=== PATIENT | female | born 1980 | race Caucasian/White ===

== ENCOUNTER 2019-10-24 07:36 | Inpatient (IN) | payer BC ==
[~2019-10-24] VITALS: Ht 154.9 cm; Wt 63.0 kg
[~2019-10-24 07:36] MED LIST: Birth Control PO; HYDR-3237 PO; SENN1TAB67 PO
[2019-10-24] MEDS ORDERED: LACTATED RINGERS 1,000 ML IV SCH (07:57)
[2019-10-24] MEDS ORDERED: MIDAZOLAM 1 MG/ML, 2ML ONE (08:36)
[2019-10-24] MEDS ORDERED: FENTANYL PF 250 MCG/5ML ONE ×2 (08:36→10:24)
[2019-10-24] MEDS ORDERED: PROPOFOL 10 MG/ML, 20ML ONE ×6 (08:36→08:45)
[2019-10-24] MEDS ORDERED: CEFAZOLIN 1,000 MG ONE ×2 (08:36)
[2019-10-24] MEDS ORDERED: DEXAMETHASONE 4 MG/ML, 1ML ONE ×2 (08:37)
[2019-10-24] MEDS ORDERED: EPHEDRINE 50 MG/ML, 1ML ONE (08:37)
[2019-10-24] MEDS ORDERED: GLYCOPYRROLATE 0.2MG/1ML, 5ML ONE (08:45)
[2019-10-24 08:59] VITALS: BP 113/76
[2019-10-24] MEDS ORDERED: SCOPOLAMINE PATCH, 1.5MG PATCH.TD72 TD ONE (09:00)
[2019-10-24] MEDS ORDERED: OxyconTIN ER 10 MG TAB.ER PO ONE (09:00)
[2019-10-24] MEDS ORDERED: GABAPENTIN 300 MG CAPSULE PO ONE (09:00)
[2019-10-24] MEDS ORDERED: FAMOTIDINE 20 MG TABLET PO ONE (09:00)
[2019-10-24] MEDS ORDERED: ACETAMINOPHEN 500 MG TABLET PO ONE (09:00)
[2019-10-24] MEDS ORDERED: VANCOMYCIN 1,000 MG ONE (09:16)
[2019-10-24] MEDS ORDERED: LIDOCAINE 1%-EPI 1:100K, 20ML ONE (09:16)
[2019-10-24] MEDS ORDERED: THROMBIN 5,000 UNIT VIAL TP ONE (09:16)
[2019-10-24] MEDS ORDERED: TOBRAMYCIN SULFATE 1.2 GM IMP ONE (09:17)
[2019-10-24] MEDS ORDERED: BACITRACIN 50,000 UNIT ONE (09:17)
[2019-10-24 09:29] LABS: HCG UR SG 1.025 (1.003-1.030)
[2019-10-24] MEDS ORDERED: HEPARIN 1,000 UNITS/ML, 30ML ONE (10:24)
[2019-10-24] MEDS ORDERED: SUCCINYLCHOLINE 20 MG/ML, 10ML ONE (10:25)
[2019-10-24] MEDS ORDERED: ROCURONIUM 10MG/ML,5ML ONE (10:25)
[2019-10-24] MEDS ORDERED: ONDANSETRON 2MG/ML, 2ML ONE (11:03)
[2019-10-24] MEDS ORDERED: NEOSTIGMINE 1 MG/ML, 10ML ONE (11:05)
[2019-10-24] MEDS ORDERED: PROMETHAZINE 25 MG/ML, 1ML IV PRN (11:30)
[2019-10-24] MEDS ORDERED: OXYcodone 5 MG/5 ML ORAL.SOL UDC PO PRN (11:30)
[2019-10-24] MEDS ORDERED: HYDROmorphone 2 MG/ML, 1ML IVPush PRN (11:30)
[2019-10-24] MEDS ORDERED: OXYcodone 5 MG/5 ML ORAL.SOL UDC ONE (11:40)
[2019-10-24] MEDS ORDERED: FENTANYL PF 100 MCG/2ML ONE (11:40)
[2019-10-24] MEDS: FENTANYL PF 100 MCG/2ML IV PRN ×3 (11:43→12:10)
[2019-10-24] MEDS ORDERED: METHOCARBAMOL 1000MG/10 ML IV ONE (12:00)
[2019-10-24] MEDS ORDERED: METHOCARBAMOL 1,000 MG in DEXTROSE 5% 100 ML IV ONE (12:00)
[2019-10-24 12:47] VITALS: BP 136/94
[2019-10-24] MEDS ORDERED: ONDANSETRON 2MG/ML, 2ML IV PRN (13:00)
[2019-10-24] MEDS ORDERED: CEFAZOLIN PMX 1GM/50ML 50 ML IVPB SCH (13:00)
[2019-10-24] MEDS ORDERED: DIPHENHYDRAMINE 50 MG/ML, 1ML IM PRN (13:00)
[2019-10-24] MEDS ORDERED: MAGNESIUM HYDROXIDE 8%, 30ML UDC PO PRN (13:00)
[2019-10-24] MEDS ORDERED: DIPHENHYDRAMINE 50 MG/ML, 1ML IVPush PRN (13:00)
[2019-10-24] MEDS ORDERED: BISACODYL 10 MG SUPP PR PRN (13:00)
[2019-10-24] MEDS ORDERED: D5%-0.9% NACL+KCL 20MEQ 1,000 ML IV SCH (13:00)
[2019-10-24] MEDS ORDERED: PROMETHAZINE 25 MG/ML, 1ML IM PRN (13:00)
[2019-10-24] MEDS ORDERED: [UNRECOGNIZED DRUG - REMARK] MC SCH (13:30)
[2019-10-24] MEDS ORDERED: morphine SULFATE 10 MG/ML, 1ML IV PRN (13:30)
[2019-10-24] MEDS: METOCLOPRAMIDE 5 MG/ML, 2ML IV SCH ×2 (13:40→19:20)
[2019-10-24] MEDS ORDERED: DIPHENHYDRAMINE 25 MG CAPSULE PO PRN (14:00)
[2019-10-24] MEDS: HYDROcodone/APAP 10/325 MG TABLET PO PRN ×2 (16:00→20:57)
[2019-10-24] MEDS: CEFAZOLIN PMX 1GM/50ML 50 ML IVPB SCH ×2 (16:58→23:54)
[2019-10-24] MEDS: D5%-0.9% NACL+KCL 20MEQ 1,000 ML IV SCH (18:19)
[2019-10-24] MEDS ORDERED: METHOCARBAMOL 750 MG TABLET PO PRN (20:00)
[2019-10-24] MEDS: SENNA/DOCUSATE TABLET PO SCH (20:56)
[2019-10-24 21:17] VITALS: BP 96/60
[2019-10-25 00:08] VITALS: BP 98/60
[2019-10-25] MEDS: METOCLOPRAMIDE 5 MG/ML, 2ML IV SCH ×4 (01:20→18:08)
[2019-10-25] MEDS: D5%-0.9% NACL+KCL 20MEQ 1,000 ML IV SCH ×3 (02:23→23:00)
[2019-10-25] MEDS: HYDROcodone/APAP 10/325 MG TABLET PO PRN ×5 (02:34→20:14)
[2019-10-25 04:17] VITALS: BP 96/59
[2019-10-25 05:10] LABS: BASOPHILS # (AUTO) 0.02 x10^3/uL (0-0.1); BASOPHILS % (AUTO) 0 % (0-1); EOSINOPHILS # (AUTO) 0.06 x10^3/uL (0-0.4); EOSINOPHILS % (AUTO) 1 % (1-7); LYMPHOCYTES # (AUTO) 1.44 x10^3/uL (1-3.4); LYMPHOCYTES % (AUTO) 13 % (22-44); MD NO; MEAN CORPUSCULAR HEMOGLOBIN 29.8 pg (27.0-34.8); MEAN CORPUSCULAR HGB CONC 33.9 g/dL (32.4-35.8); MEAN CORPUSCULAR VOLUME 87.9 fL (80-100); MEAN PLATELET VOLUME 11.9 fL (7.4-10.4); MONOCYTES # (AUTO) 0.94 x10^3/uL (0.2-0.8); MONOCYTES % (AUTO) 8 % (2-9); NEUTROPHILS # (AUTO) 9.06 x10^3/uL (1.8-6.8); NEUTROPHILS % (AUTO) 79 % (42-75); PLATELET COUNT 176 x10^3/uL (130-400); RED BLOOD COUNT 4.09 x10^6/uL (3.82-5.3); RED CELL DISTRIBUTION WIDTH 12.6 % (9.6-15.2)
[2019-10-25 05:18] LABS: ANION GAP 6 mmol/L (5-15); CALCIUM 7.8 mg/dL (8.5-10.1); CHLORIDE 107 mmol/L (98-107); CREATININE 0.72 mg/dL (0.55-1.02)
[2019-10-25 07:50] VITALS: BP 112/73
[2019-10-25] MEDS: SENNA/DOCUSATE TABLET PO SCH ×3 (09:00→20:11)
[2019-10-25] MEDS: BIRTH CONTROL HOMEMEDPO SCH (09:00)
[2019-10-25 12:53] VITALS: BP 116/78
[2019-10-25] MEDS ORDERED: D5%-0.9% NACL+KCL 20MEQ 1,000 ML IV SCH (13:00)
[2019-10-25] MEDS: ENOXAPARIN 30 MG/0.3 ML SQ SCH (20:11)
[2019-10-25 20:21] VITALS: BP 111/75
[2019-10-26] MEDS: HYDROcodone/APAP 10/325 MG TABLET PO PRN (01:06)
[2019-10-26] MEDS: METOCLOPRAMIDE 5 MG/ML, 2ML IV SCH ×3 (01:10→13:30)
[2019-10-26 02:28] VITALS: BP 103/70
[2019-10-26 06:05] LABS: BASOPHILS # (AUTO) 0.01 x10^3/uL (0-0.1); BASOPHILS % (AUTO) 0 % (0-1); EOSINOPHILS # (AUTO) 0.09 x10^3/uL (0-0.4); EOSINOPHILS % (AUTO) 1 % (1-7); LYMPHOCYTES # (AUTO) 1.94 x10^3/uL (1-3.4); LYMPHOCYTES % (AUTO) 22 % (22-44); MD NO; MEAN CORPUSCULAR HEMOGLOBIN 29.7 pg (27.0-34.8); MEAN CORPUSCULAR HGB CONC 33.4 g/dL (32.4-35.8); MEAN CORPUSCULAR VOLUME 88.8 fL (80-100); MEAN PLATELET VOLUME 11.5 fL (7.4-10.4); MONOCYTES # (AUTO) 0.83 x10^3/uL (0.2-0.8); MONOCYTES % (AUTO) 9 % (2-9); NEUTROPHILS # (AUTO) 5.92 x10^3/uL (1.8-6.8); NEUTROPHILS % (AUTO) 67 % (42-75); PLATELET COUNT 171 x10^3/uL (130-400); RED BLOOD COUNT 4.18 x10^6/uL (3.82-5.3); RED CELL DISTRIBUTION WIDTH 12.8 % (9.6-15.2)
[2019-10-26 06:21] LABS: ANION GAP 7 mmol/L (5-15); CALCIUM 7.8 mg/dL (8.5-10.1); CHLORIDE 108 mmol/L (98-107)
[2019-10-26 06:38] VITALS: BP_SYST 112; BP_SYST 115; BP_DIAS 61; BP_DIAS 78
[2019-10-26] MEDS: HYDROcodone/APAP 5/325 TABLET PO PRN ×2 (06:48→13:08)
[2019-10-26] MEDS: D5%-0.9% NACL+KCL 20MEQ 1,000 ML IV SCH (07:28)
[2019-10-26] MEDS: BIRTH CONTROL HOMEMEDPO SCH (07:28)
[2019-10-26] MEDS: SENNA/DOCUSATE TABLET PO SCH (07:38)
[2019-10-26] MEDS: ENOXAPARIN 30 MG/0.3 ML SQ SCH (07:38)
[2019-10-26 14:01] VITALS: BP 126/85
[2019-10-26] MEDS ORDERED: HYDR-3240 PO (15:43)
[2019-10-26] MEDS ORDERED: ENOX40SY4 SQ (15:45)
[2019-10-26] MEDS ORDERED: METH750T87 PO (15:46)
[2019-10-26 16:30] VITALS: BP 128/68
== END 2019-10-26 16:41 | disposition home or self-care (01) | DRG 460 ==
LOC: ORIP 07:36 → 4NE 12:33
PROVIDERS: ADMIT Orthopaedic Surgery Orthopaedic Surgery of the Spine; ATTEND Orthopaedic Surgery Orthopaedic Surgery of the Spine
PROC: 01NB0ZZ Release Lumbar Nerve, Open Approach (ICD-10-PCS; 2019-10-24)
PROC: 0SG30A0 Fusion of Lumbosacral Joint with Interbody Fusion Device, Anterior Approach, Anterior Column, Open Approach (ICD-10-PCS; principal; 2019-10-24 09:30)
DX: M51.17 Intervertebral disc disorders with radiculopathy, lumbosacral region (principal); K21.9 Gastro-esophageal reflux disease without esophagitis; G89.29 Other chronic pain; M43.17 Spondylolisthesis, lumbosacral region; M48.07 Spinal stenosis, lumbosacral region; Z79.899 Other long term (current) drug therapy; Z88.6 Allergy status to analgesic agent; Z88.1 Allergy status to other antibiotic agents
CPT/HCPCS: 36415; 72100; 74018; J3260; 80048; 81025; 85025; 86850; 86900; C1776; G0378; J0690; J1100; J1644; J1650; J2250; J2405; J2704; J2710; J3010; J3370; J3490; C1762; J0330; J2270; J2765; J2800; J3480; J7120

== ENCOUNTER 2019-11-07 05:56 | Inpatient (IN) | payer BC ==
[~2019-11-07] VITALS: Ht 152.4 cm; Wt 60.0 kg
[~2019-11-07 05:56] MED LIST changes: +ENOX40SY4 SQ; +HYDR-3240 PO; +METH750T87 PO
[2019-11-07] MEDS ORDERED: BUPIVACAINE/PF 0.5% ONE (06:47)
[2019-11-07] MEDS ORDERED: BUPIVACAINE/PF-EPI 0.25% 1:200K ONE (06:47)
[2019-11-07] MEDS ORDERED: EPINEPHRINE 1 MG/ML, 1ML ONE (06:48)
[2019-11-07] MEDS ORDERED: THROMBIN 5,000 UNIT VIAL TP ONE (06:48)
[2019-11-07] MEDS ORDERED: VANCOMYCIN 1,000 MG ONE (06:48)
[2019-11-07] MEDS ORDERED: LACTATED RINGERS 1,000 ML IV SCH (07:06)
[2019-11-07] MEDS ORDERED: SCOPOLAMINE PATCH, 1.5MG PATCH.TD72 TD ONE (07:20)
[2019-11-07] MEDS ORDERED: LIDOCAINE/PF 0.5% ,50ML ONE (07:20)
[2019-11-07] MEDS ORDERED: ACETAMINOPHEN 500 MG TABLET ONE (07:20)
[2019-11-07] MEDS ORDERED: GABAPENTIN 300 MG CAPSULE ONE (07:21)
[2019-11-07 07:33] LABS: HCG UR SG 1.026 (1.003-1.030)
[2019-11-07] MEDS ORDERED: MIDAZOLAM 1 MG/ML, 2ML ONE (07:34)
[2019-11-07] MEDS ORDERED: FENTANYL PF 250 MCG/5ML ONE ×4 (07:35→13:04)
[2019-11-07] MEDS ORDERED: CLINDAMYCIN 150 MG/ML, 6ML ONE (07:48)
[2019-11-07] MEDS ORDERED: SUCCINYLCHOLINE 20 MG/ML, 10ML ONE (07:56)
[2019-11-07] MEDS ORDERED: ROCURONIUM 10MG/ML,5ML ONE (07:56)
[2019-11-07] MEDS ORDERED: GLYCOPYRROLATE 0.2MG/1ML, 5ML ONE (07:56)
[2019-11-07] MEDS ORDERED: DEXAMETHASONE 4 MG/ML, 1ML ONE (07:56)
[2019-11-07] MEDS ORDERED: NEOSTIGMINE 1 MG/ML, 10ML ONE (07:56)
[2019-11-07] MEDS ORDERED: CEFAZOLIN 1,000 MG ONE (07:56)
[2019-11-07] MEDS ORDERED: ONDANSETRON 2MG/ML, 2ML ONE (07:56)
[2019-11-07] MEDS ORDERED: PROPOFOL 10 MG/ML, 20ML ONE (07:56)
[2019-11-07] MEDS ORDERED: MEPERIDINE/PF 100 MG/ML ONE (09:56)
[2019-11-07] MEDS ORDERED: HYDROmorphone 2 MG/ML, 1ML IVPush PRN (10:00)
[2019-11-07] MEDS ORDERED: hydrALAzine 20 MG/ML, 1ML IV PRN (10:00)
[2019-11-07] MEDS ORDERED: MEPERIDINE/PF 25MG/0.5ML IVPush PRN (10:00)
[2019-11-07] MEDS ORDERED: LABETALOL 5MG/ML, 20ML IV PRN (10:00)
[2019-11-07] MEDS ORDERED: OXYcodone 5 MG/5 ML ORAL.SOL UDC PO PRN (10:00)
[2019-11-07] MEDS ORDERED: DIAZEPAM 5 MG/ML, 2ML IVPush PRN (10:00)
[2019-11-07] MEDS ORDERED: ALBUTEROL SULFATE 2.5 MG/3 ML NPPB PRN (10:00)
[2019-11-07] MEDS ORDERED: PROMETHAZINE 25 MG/ML, 1ML IV PRN (10:00)
[2019-11-07] MEDS ORDERED: FENTANYL PF 100 MCG/2ML ONE (10:47)
[2019-11-07] MEDS ORDERED: OXYcodone 5 MG/5 ML ORAL.SOL UDC ONE (10:48)
[2019-11-07] MEDS ORDERED: DIAZEPAM 5 MG/ML, 2ML ONE (10:48)
[2019-11-07] MEDS: FENTANYL PF 100 MCG/2ML IV PRN ×2 (10:50→10:55)
[2019-11-07] MEDS ORDERED: DIPHENHYDRAMINE 50 MG/ML, 1ML IM PRN (12:30)
[2019-11-07] MEDS ORDERED: BISACODYL 10 MG SUPP PR PRN (12:30)
[2019-11-07] MEDS ORDERED: HYDROcodone/APAP 5/325 TABLET PO PRN (12:30)
[2019-11-07] MEDS ORDERED: morphine SULFATE 10 MG/ML, 1ML IV PRN ×2 (12:30)
[2019-11-07] MEDS ORDERED: DIPHENHYDRAMINE 25 MG CAPSULE PO PRN (12:30)
[2019-11-07] MEDS ORDERED: PROMETHAZINE 25 MG/ML, 1ML IM PRN (12:30)
[2019-11-07] MEDS ORDERED: DIPHENHYDRAMINE 50 MG/ML, 1ML IVPush PRN (12:30)
[2019-11-07] MEDS ORDERED: MAGNESIUM HYDROXIDE 8%, 30ML UDC PO PRN (12:30)
[2019-11-07] MEDS ORDERED: ONDANSETRON 2MG/ML, 2ML IV PRN (12:30)
[2019-11-07 12:31] VITALS: BP 110/70
[2019-11-07] MEDS: D5%-0.9% NACL+KCL 20MEQ 1,000 ML IV SCH (12:56)
[2019-11-07] MEDS: HYDROcodone/APAP 10/325 MG TABLET PO PRN ×2 (14:28→19:16)
[2019-11-07] MEDS: CEFAZOLIN PMX 1GM/50ML 50 ML IVPB SCH ×2 (16:01→23:33)
[2019-11-07 19:05] VITALS: BP 106/70
[2019-11-07] MEDS: METHOCARBAMOL 750 MG TABLET PO PRN (19:16)
[2019-11-07] MEDS: SENNA/DOCUSATE TABLET PO SCH (21:26)
[2019-11-08] MEDS: HYDROcodone/APAP 10/325 MG TABLET PO PRN ×5 (00:55→20:55)
[2019-11-08 00:56] VITALS: BP 99/64
[2019-11-08] MEDS: D5%-0.9% NACL+KCL 20MEQ 1,000 ML IV SCH ×3 (03:00→21:09)
[2019-11-08 04:43] VITALS: BP 103/67
[2019-11-08 05:18] LABS: BASOPHILS # (AUTO) 0.06 x10^3/uL (0-0.1); BASOPHILS % (AUTO) 1 % (0-1); EOSINOPHILS # (AUTO) 0.14 x10^3/uL (0-0.4); EOSINOPHILS % (AUTO) 1 % (1-7); LYMPHOCYTES # (AUTO) 1.88 x10^3/uL (1-3.4); LYMPHOCYTES % (AUTO) 18 % (22-44); MD NO; MEAN CORPUSCULAR HEMOGLOBIN 29.3 pg (27.0-34.8); MEAN CORPUSCULAR HGB CONC 33.5 g/dL (32.4-35.8); MEAN CORPUSCULAR VOLUME 87.5 fL (80-100); MEAN PLATELET VOLUME 10.6 fL (7.4-10.4); MONOCYTES % (AUTO) 8 % (2-9); NEUTROPHILS # (AUTO) 7.62 x10^3/uL (1.8-6.8); NEUTROPHILS % (AUTO) 73 % (42-75); PLATELET COUNT 271 x10^3/uL (130-400); RED BLOOD COUNT 4.07 x10^6/uL (3.82-5.3); RED CELL DISTRIBUTION WIDTH 13.3 % (9.6-15.2)
[2019-11-08 05:22] LABS: ANION GAP 7 mmol/L (5-15); CALCIUM 8.3 mg/dL (8.5-10.1); CHLORIDE 109 mmol/L (98-107)
[2019-11-08 05:26] LABS: CREATININE 0.63 mg/dL (0.55-1.02)
[2019-11-08] MEDS: METHOCARBAMOL 750 MG TABLET PO PRN (05:59)
[2019-11-08 07:15] VITALS: BP 94/60
[2019-11-08] MEDS: SENNA/DOCUSATE TABLET PO SCH ×2 (09:56→20:55)
[2019-11-08] MEDS: DIAZEPAM 5 MG TABLET PO PRN ×2 (13:58→22:56)
[2019-11-08] MEDS: DEXAMETHASONE 4 MG/ML, 1ML IVPush SCH ×2 (13:58→20:55)
[2019-11-08 14:07] VITALS: BP 122/85
[2019-11-08 19:48] VITALS: BP 117/80
[2019-11-09] MEDS: DEXAMETHASONE 4 MG/ML, 1ML IVPush SCH ×2 (01:50→09:03)
[2019-11-09] MEDS: HYDROcodone/APAP 10/325 MG TABLET PO PRN ×3 (01:51→12:49)
[2019-11-09 02:52] VITALS: BP 101/68
[2019-11-09 05:40] LABS: BASOPHILS # (AUTO) 0.01 x10^3/uL (0-0.1); BASOPHILS % (AUTO) 0 % (0-1); EOSINOPHILS # (AUTO) 0.05 x10^3/uL (0-0.4); EOSINOPHILS % (AUTO) 1 % (1-7); LYMPHOCYTES % (AUTO) 4 % (22-44); MD NO; MEAN CORPUSCULAR HEMOGLOBIN 29.6 pg (27.0-34.8); MEAN CORPUSCULAR HGB CONC 33.5 g/dL (32.4-35.8); MEAN CORPUSCULAR VOLUME 88.4 fL (80-100); MEAN PLATELET VOLUME 11.4 fL (7.4-10.4); MONOCYTES # (AUTO) 0.23 x10^3/uL (0.2-0.8); MONOCYTES % (AUTO) 2 % (2-9); NEUTROPHILS # (AUTO) 10.58 x10^3/uL (1.8-6.8); NEUTROPHILS % (AUTO) 93 % (42-75); PLATELET COUNT 316 x10^3/uL (130-400); RED BLOOD COUNT 4.57 x10^6/uL (3.82-5.3)
[2019-11-09 05:48] LABS: CHLORIDE 107 mmol/L (98-107)
[2019-11-09 05:56] LABS: ANION GAP 8 mmol/L (5-15); CALCIUM 9.2 mg/dL (8.5-10.1); CREATININE 0.68 mg/dL (0.55-1.02)
[2019-11-09 07:23] VITALS: BP 106/70
[2019-11-09 08:55] VITALS: BP 105/65
[2019-11-09] MEDS: METHOCARBAMOL 750 MG TABLET PO PRN (08:55)
[2019-11-09] MEDS: SENNA/DOCUSATE TABLET PO SCH (08:56)
[2019-11-09] MEDS: D5%-0.9% NACL+KCL 20MEQ 1,000 ML IV SCH (09:00)
== END 2019-11-09 13:33 | disposition home or self-care (01) | DRG 460 ==
LOC: ORIP 05:56 → 4NE 11:59 → DCLOUNGE 11-09 13:15
PROVIDERS: ADMIT Orthopaedic Surgery Orthopaedic Surgery of the Spine; ATTEND Orthopaedic Surgery Orthopaedic Surgery of the Spine
PROC: 01NB0ZZ Release Lumbar Nerve, Open Approach (ICD-10-PCS; 2019-11-07)
PROC: 01NR0ZZ Release Sacral Nerve, Open Approach (ICD-10-PCS; 2019-11-07)
PROC: 0SG3071 Fusion of Lumbosacral Joint with Autologous Tissue Substitute, Posterior Approach, Posterior Column, Open Approach (ICD-10-PCS; principal; 2019-11-07 07:30)
DX: M48.061 Spinal stenosis, lumbar region without neurogenic claudication (principal); M43.17 Spondylolisthesis, lumbosacral region; Z88.6 Allergy status to analgesic agent; Z88.8 Allergy status to other drugs, medicaments and biological substances; G89.18 Other acute postprocedural pain; M79.10 Myalgia, unspecified site
CPT/HCPCS: 36415; 72100; S0020; S0077; 80048; 81025; 85025; 86850; 86900; C1713; G0378; J0171; J0690; J1100; J2001; J2250; J2405; J2704; J2710; J3010; J3360; J3370; J0330; J2175; J3480; J7120